=== PATIENT | male | born 1960 | race African-American/Black ===

== ENCOUNTER → 2016-05-31 | Outpatient (CLI) | payer MEDICARE ==
--- NOTE | 2016-05-31 16:13 | RAD ---
Indication hypercalcemia. Assess for potential parathyroid adenoma. Grayscale imaging targeted to the thyroid and surrounding tissues was performed. Note is made of a similar exam 04/25/2015. The right lobe of the thyroid measures 7.5 x 3 x 3 cm. The left lobe of the thyroid measures 7.6 x 3.2 x 2.8 cm. The thyroid has a general heterogeneous appearance. No dominant mass is seen in either lobe of the thyroid. A definite mass, suggesting a parathyroid adenoma, is not seen. IMPRESSION: Somewhat enlarged heterogeneous appearing thyroid. No discrete nodule seen. No definite evidence of parathyroid adenoma
== END | disposition home or self-care (01) ==
LOC: US 14:35
PROVIDERS: ATTEND Family Medicine
DX: E83.52 Hypercalcemia (principal); E04.9 Nontoxic goiter, unspecified
CPT/HCPCS: 76536

== ENCOUNTER → 2020-06-20 | Day surgery (SDC) | payer MEDICARE ==
[~2020-06-20] MED LIST: ASPI-630 PO; CARV25TA2 PO; HYDR-2868 PO; IV RINGERS,LACTATED 1000ML 1,000 ML IV SCH; LIDOCAINE 2% PF 5 ML VIAL. ONE; METF500T16 PO; MULT-735 PO; OLME20TA17 PO; OMEG100021 PO; PRAV20TA2 PO; PROPOFOL 10 MG/ML (20ML) VIAL. IV ONE; SITA50TA PO; SPIR25TA5 PO
--- NOTE | 2020-06-20 13:09 | PDOC1 ---
History and Physical Date of Admission Date of Admission DATE: 06/20/20 TIME: 13:03 Identification/Chief Complaint Chief Complaint Colon cancer screening. Source Source: Patient History of Present Illness History of Present Illness 60 y/o male here for colon cancer screening. Prior colonoscopy ~10 years ago historically normal. GIFH negative. No GI complaints. Wt/appetite OK. Past Medical History Cardiovascular: HTN, Hyperlipidemia, Other (cardiomyopathy with AICD) Endocrine: Diabetes Past Surgical History Past Surgical History: Pacemaker (AICD) Family History Family History: Coronary Artery Disease, Diabetes, Hypertension, Stroke Social History Smoke: Quit ALCOHOL: none Drugs: None Current Medications Current Medications Current Medications Ringer's Solution 1,000 ml @ 50 mls/hr Q20H IV Last administered on 06/20/20at 12:30; Start 06/20/20 at 10:00; Stop 06/20/20 at 21:59 Ringer's Solution 1,000 ml @ 50 mls/hr Q20H IV ; Start 06/20/20 at 12:45; Stop 06/21/20 at 00:44 Propofol (Diprivan) 200 mg STK-MED ONCE IV ; Start 06/20/20 at 12:39; Stop 06/20/20 at 12:39; Status DC Active Scripts Active Reported Fish Oil 1,000 mg Softgel (Frontier-3/Dha/Epa/Fish Oil) 1,000 Mg Capsule 1 Cap PO DAILY 30 Days One-Daily Multi-Vitamin (Multivitamin) 1 Each Tablet 1 Tab PO DAILY 30 Days Aspirin 81 Mg Tab.chew 1 Tab PO DAILY Carvedilol 25 Mg Tablet 25 Mg PO BIDWMEALS Pravastatin Sodium 20 Mg Tablet 20 Mg PO DAILY Spironolactone 25 Mg Tablet 25 Mg PO DAILY Januvia (Sitagliptin Phosphate) 50 Mg Tablet 50 Mg PO DAILY Hydralazine Hcl 25 Mg Tablet 1 Tab PO TID Metformin Hcl 500 Mg Tablet 500 Mg PO TID Benicar (Olmesartan Medoxomil) 20 Mg Tablet 20 Mg PO DAILY Allergies Allergies: Coded Allergies: atorvastatin (Verified Allergy, Intermediate, Unknown, 06/20/20) ROS Review of System Otherwise negative. Physical Exam General: Alert, Oriented X3, Cooperative, No acute distress HEENT: Atraumatic Lungs: Clear to auscultation Heart: S1S2, RRR, no gallops, no murmurs Abdomen: Normal bowel sounds, Soft, No tenderness, No hepatosplenomegaly, No masses Rectal Exam: deferred (to time of procedure) Extremities: No cyanosis, No edema Skin: No significant lesion Neuro: Normal gait, Normal speech, Strength at 5/5 X4 ext, Normal tone, Sensation intact, Cranial nerves 3-12 NL, Reflexes 2+ Psych/Mental Status: Mental status NL, Mood NL Vitals Vitals Vital Signs Date Time Temp Pulse Resp B/P (MAP) Pulse Ox O2 Delivery O2 Flow Rate FiO2 06/20/20 12:27 97.9 58 18 97 97.9 Labs Labs Laboratory Tests Test 06/20/20 12:10 SARS-CoV-2 Antigen (Rapid) Negative (NEGATIVE) Laboratory Tests Test 06/20/20 12:10 SARS-CoV-2 Antigen (Rapid) Negative (NEGATIVE) VTE Prophylaxis Ordered VTE Prophylaxis Devices: No VTE Pharmacological Prophylaxi: No Assessment/Plan Assessment/Plan IMP: Average risk for colon cancer. PLAN: Screening colonoscopy. NORMA AGUILAR MD June 20, 2020 13:09
--- NOTE | 2020-06-20 13:38 | PDOC4 ---
PROCEDURE Procedure Colonoscopy Indication: colon cancer screening Meds: per anesthesia Findings: APRIL--normal --'Scope advanced to cecum. Prep adequate. Mucosa normal. No polyps, diverticula seen. Normal retroflex. Tiffanie. well. IMP: negative screening exam. REC: Resume diet and meds. Repeat exam in 10 years. Can f/u with me prn. NORMA AGUILAR MD June 20, 2020 13:38
[2020-06-20 14:04] VITALS: BP 133/73
== END | disposition home or self-care (01) ==
LOC: ENDOS 12:00
PROVIDERS: ATTEND Internal Medicine Gastroenterology
DX: Z12.11 Encounter for screening for malignant neoplasm of colon (principal); I10 Essential (primary) hypertension; E78.00 Pure hypercholesterolemia, unspecified; E11.9 Type 2 diabetes mellitus without complications; Z79.82 Long term (current) use of aspirin; Z79.84 Long term (current) use of oral hypoglycemic drugs; Z79.899 Other long term (current) drug therapy; Z87.891 Personal history of nicotine dependence; Z98.890 Other specified postprocedural states; Z88.8 Allergy status to other drugs, medicaments and biological substances; Z20.822 Contact with and (suspected) exposure to COVID-19; Z86.73 Personal history of transient ischemic attack (TIA), and cerebral infarction without residual deficits
CPT/HCPCS: 87426; G0121; J2704; 45378